=== PATIENT | female | born 1950 | race Caucasian/White ===

== ENCOUNTER 2016-05-15 16:34 | Emergency (ER) | payer OTHER ==
[~2016-05-15] VITALS: Ht 157.5 cm; Wt 88.9 kg
--- NOTE | ~2016-05-15 | EKG ---
[address] [place] [address] ELECTROCARDIOGRAM REPORT Name: JAKUB JACOBOCLOVIS LEIGHE Room #: 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
[~2016-05-15 16:34] MED LIST: AMARYL2 MG PO; ASPIRIN EC325 M1 PO; ATIVAN0.5 MG PO; AUGMENTIN 875875 MG PO; BACTRIM DS TAB1 EACH PO; BENICAR40 MG PO; BYSTOLIC 5 MG5 M1 PO; CELEXA 20 MG TA20 M1 PO; COLACE100 MG PO; COUMADIN 4 MG TA4 M1 PO; COZAAR 25 MG TA25 M2 PO; COZAAR 50 MG TA50 M2 PO; COZAAR100 MG PO; DYAZIDE 37.5-21 EACH PO; EFFEXOR XR150 MG PO; EFFEXOR XR75 MG PO; ESTRACE0.5 MG PO; FISH OIL 1,2001 EAC3 PO; GLUCOPHAGE XR500 MG PO; GLUCOPHAGE500 MG PO; HYDROCODON-ACE1 EAC5 PO; HYDROCODON-ACE1 EAC7 PO; IBUPROFEN 800800 M1 PO; LASIX 40 MG TAB40 M2 PO; LEVSIN0.125 MG PO; LIORESAL 10 MG10 MG PO; LIPITOR20 MG PO; NORCO 5-325 TA1 EACH PO; PEPCID AC20 M1 PO; PEPCID20 MG PO; PERCOCET PO; POTASSIUM20 PO; PREDNISONE 10 M10 MG PO; PREDNISONE 20 M20 M1 PO; PREVACID30 MG PO; PYRIDIUM200 MG PO; TOPROL XL50 MG PO; TRAMADOL 50 MG50 MG PO; VITAMIN D35000 UNI1 PO; VITAMIN E400 UNIT PO; WELLBUTRIN SR150 MG PO; WELLBUTRIN XL150 MG PO; XANAX 0.5 MG0.5 MG PO
[2016-05-15 17:33] LABS: ABSOLUTE NEUTROPHILS 6.1 thou/uL (1.4-8.2); BASOPHILS 0.3 % (0.0-2.0); EOSINOPHILS 1.2 % (0.0-3.0); HEMATOCRIT 41.4 % (37.0-47.0); HEMOGLOBIN 13.9 gm/dL (12.0-15.0); LYMPHOCYTES 21.2 % (24.0-44.0); MCH 27.4 pg (26.0-34.0); MCHC 33.5 % (28.0-37.0); MCV 81.8 fL (80.0-100.0); MONOCYTES 8.9 % (1.0-8.0); PLATELET COUNT 172 thou/uL (150-400); POLYS 68.4 % (36.0-66.0); RBC 5.06 mil/uL (4.20-5.00); RDW 15.1 % (10.5-14.5); WBC 8.9 thou/uL (4.0-11.0)
[2016-05-15 17:36] LABS: MANUAL DIFF NO
[2016-05-15 17:38] LABS: ANION GAP 3 mmol/L (7-16); BUN 22 mg/dL (7-18); CALCIUM 8.7 mg/dL (8.5-10.1); CHLORIDE 102 mmol/L (98-107); CO2 33 mmol/L (21-32); CREATININE 0.8 mg/dL (0.6-1.3); GLUCOSE 84 mg/dL (70-99); POTASSIUM 3.7 mmol/L (3.5-5.1); SODIUM 138 mmol/L (136-145)
[2016-05-15 17:47] LABS: ALBUMIN 3.4 g/dL (3.4-5.0); ALKALINE PHOSPHATASE 120 U/L (46-116); SGOT 20 U/L (15-37); SGPT 31 U/L (30-65); TOTAL BILIRUBIN 0.6 mg/dL (<0.1-1.0); TOTAL PROTEIN 6.5 g/dL (6.4-8.2); TROPONIN-I < 0.04 ng/mL (<0.04-0.07)
[2016-05-15 18:01] LABS: URINE BILIRUBIN NEGATIVE (Negative); URINE BLOOD 2+ (Negative); URINE COLOR YELLOW; URINE GLUCOSE-RANDOM* NEGATIVE (Negative); URINE KETONES NEGATIVE (Negative); URINE LEUKOCYTES-REFLEX NEGATIVE (Negative); URINE PROTEIN (DIPSTICK) NEGATIVE (Negative); URINE UROBILINOGEN 0.2 E.U./dl (0.2-1.0)
[2016-05-15 18:07] LABS: CASTS None Seen /LPF (None Seen); SQUAMOUS 0-3 Few /LPF (0-3); URINE RBC 0-2 Rare /HPF (0-2); URINE WBC-REFLEX None Seen /HPF (0-5)
[2016-05-15 18:08] LABS: CRYSTALS None Seen /LPF (None Seen)
[2016-05-15] MEDS ORDERED: ASPIRIN325 PO (18:10)
[2016-05-15] MEDS ORDERED: HYDROCODONE-AP1 EAC6 PO (18:34)
[2016-05-15] MEDS ORDERED: PHENERGAN 25 MG25 M1 PO (18:34)
[2016-05-15 19:02] VITALS: BP 145/69
== END 2016-05-15 19:03 | disposition home or self-care (01) ==
LOC: ER 16:34
PROVIDERS: Physician Assistant
DX: R10.13 Epigastric pain (principal); F41.9 Anxiety disorder, unspecified; I25.10 Atherosclerotic heart disease of native coronary artery without angina pectoris; I10 Essential (primary) hypertension; E78.5 Hyperlipidemia, unspecified; E11.9 Type 2 diabetes mellitus without complications; Z90.49 Acquired absence of other specified parts of digestive tract; Z90.710 Acquired absence of both cervix and uterus; Z98.890 Other specified postprocedural states; Z88.7 Allergy status to serum and vaccine

== ENCOUNTER 2016-07-23 16:18 | Inpatient (IN) | payer OTHER ==
[~2016-07-23] VITALS: Ht 154.9 cm; Wt 93.1 kg
--- NOTE | ~2016-07-23 | H ---
[facility] [place] [address] HISTORY AND PHYSICAL Name: DISHA JACOBO Room #: 219-P ADM IN M.R.#: [id number] Admission: 07/23/16 Attend Phys: Troy Wray MD Discharge: Date of : 50 Report #: [id number] THIS REPORT FOR: //name// CC: Troy Wray DATE OF SERVICE: 07/23/2016 CHIEF COMPLAINT: Cough and shortness of breath. HISTORY OF PRESENT ILLNESS: The patient is a 65-year-old female who states she has been having more cough and shortness of breath over the past several weeks. She has been treated for pneumonia. Despite the treatment, she is getting worse. She has some yellow sputum production. She is unaware of fever. PAST MEDICAL HISTORY: Significant for: 1. Hypertension. 2. Hyperlipidemia. 3. Reflux. 4. Hyper now hypothyroidism. 5. Anxiety. 6. Coronary artery disease. 7. Diastolic heart failure. 8. Diabetes mellitus type 2. MEDICATIONS: Alprazolam 0.5 p.r.n., metformin XR 500 mg 2 tablets daily, Lipitor 20 mg a day, Singulair 10 mg a day, ProAir p.r.n., venlafaxine 150 mg a day. SOCIAL HISTORY: She is a nonsmoker, no alcohol, no recreational drugs. FAMILY HISTORY: She has a sister with breast cancer, mother and father both . REVIEW OF SYSTEMS: CONSTITUTIONAL: She has had a fever at last visit but none this week. She has had constitutional fatigue, chills. HEENT: No headache or visual changes. CHEST: She has cough with yellow sputum. GASTROINTESTINAL: No nausea, vomiting, diarrhea or constipation. GENITOURINARY: No burning or frequency. EXTREMITIES: No new complaints. SKIN: No new rashes or wounds. NEUROLOGIC: No new numbness or weakness. PHYSICAL EXAMINATION: VITAL SIGNS: Blood pressure 116/72, pulse is 82, respiratory rate is 16. O2 [facility] [address] [place] [address] HISTORY AND PHYSICAL Name: DISHA JACOBO Room #: 219- ADM IN ..#: [id number] Admission: 07/23/16 Attend Phys: Troy Wray MD Discharge: Date of : 50 Report #: [id number] sat is 95% on room air. She is afebrile. GENERAL: She is awake and alert, in no acute distress, but she states she feels very weak and retired. Her mucous membranes are moist. NECK: Supple, without adenopathy, thyromegaly or bruits. CHEST: Shows left basilar crackles. CARDIOVASCULAR: Regular rhythm without murmur. ABDOMEN: Soft, obese. No masses. Bowel sounds are active. EXTREMITIES: Show no edema. Pulses are intact. Chest x-ray shows a left lower lobe infiltrate and the right perihilar infiltrate. ASSESSMENT: Community-acquired pneumonia, failing outpatient therapy. PLAN: We will admit. We are going to start her on IV Rocephin and Zithromax and IV Solu-Medrol and breathing treatments every 4 hours, check a CBC, a CMP and monitor clinically. By: 1612 1722 Troy Wray MD /nt
[~2016-07-23 16:18] MED LIST changes: +ASPIRIN325 PO; +HYDROCODONE-AP1 EAC6 PO; +PHENERGAN 25 MG25 M1 PO
[2016-07-23 16:45] VITALS: BP 150/90
[2016-07-23] MEDS ORDERED: COZAAR 50 MG TA50 M1 PO (17:08)
[2016-07-23 20:04] LABS: HEMATOCRIT 36.7 % (37.0-47.0); HEMOGLOBIN 12.3 gm/dL (12.0-15.0); MCH 27.7 pg (26.0-34.0); MCHC 33.4 g/dL (28.0-37.0); MCV 83.1 fL (80.0-100.0); RBC 4.42 mil/uL (4.20-5.00); RDW 14.5 % (10.5-14.5); WBC 6.4 thou/uL (4.0-11.0)
[2016-07-23 20:09] VITALS: BP 101/66
[2016-07-23 20:16] LABS: ALBUMIN 3.1 g/dL (3.4-5.0); CALCIUM 8.3 mg/dL (8.5-10.1); CREATININE 0.8 mg/dL (0.6-1.3); POTASSIUM 3.8 mmol/L (3.5-5.1); TOTAL BILIRUBIN 0.2 mg/dL (<0.1-1.0); TOTAL PROTEIN 5.9 g/dL (6.4-8.2)
[2016-07-23 23:44] VITALS: BP 119/62
[2016-07-24 04:20] VITALS: BP 119/66
[2016-07-24 07:55] VITALS: BP 136/79
[2016-07-24] MEDS ORDERED: SINGULAIR 10 MG10 M1 PO (08:25)
[2016-07-24 11:20] VITALS: BP 161/50
[2016-07-24 16:20] VITALS: BP 152/78
[2016-07-24 20:25] VITALS: BP 147/83
[2016-07-25 03:40] VITALS: BP 135/78
[2016-07-25 08:00] VITALS: BP 132/65; BP 156/78
[2016-07-25 12:47] VITALS: BP 131/71
[2016-07-25 16:29] VITALS: BP 144/81
[2016-07-25 20:12] VITALS: BP 127/40
[2016-07-26 04:51] VITALS: BP 123/73
[2016-07-26 07:06] VITALS: BP 146/89
[2016-07-26 12:15] VITALS: BP 145/98
[2016-07-26 17:30] VITALS: BP 148/83
[2016-07-26 21:34] VITALS: BP 140/75
[2016-07-27 04:00] VITALS: BP 152/75
[2016-07-27 07:45] VITALS: BP 155/88
[2016-07-27 11:30] VITALS: BP 157/76
[2016-07-27] MEDS ORDERED: CEFDINIR300 MG PO (12:44)
[2016-07-27] MEDS ORDERED: AZITHROMYCIN 2250 MG PO (12:44)
[2016-07-27] MEDS ORDERED: PREDNISONE 10 M10 MG PO (12:45)
[2016-07-27] MEDS ORDERED: COZAAR 25 MG TA25 M1 PO (12:45)
[2016-07-27] MEDS ORDERED: EFFEXOR XR75 MG PO (12:46)
[2016-07-27] MEDS ORDERED: GUAIFENESIN/COD10 M1 PO (12:47)
[2016-07-27 12:56] VITALS: BP 157/76
[2016-07-27 15:12] VITALS: BP 157/76
[2016-07-27 16:45] VITALS: BP 157/76
== END 2016-07-27 16:30 | disposition home or self-care (01) | DRG 190 ==
LOC: 2N 16:18
PROVIDERS: Family Medicine
DX: J44.0 Chronic obstructive pulmonary disease with (acute) lower respiratory infection (principal); J18.9 Pneumonia, unspecified organism; I10 Essential (primary) hypertension; F41.9 Anxiety disorder, unspecified; I25.10 Atherosclerotic heart disease of native coronary artery without angina pectoris; E78.5 Hyperlipidemia, unspecified; J45.909 Unspecified asthma, uncomplicated; K21.9 Gastro-esophageal reflux disease without esophagitis; E03.9 Hypothyroidism, unspecified; E66.9 Obesity, unspecified; E11.9 Type 2 diabetes mellitus without complications; Z80.3 Family history of malignant neoplasm of breast; Z23 Encounter for immunization; Z68.38 Body mass index [BMI] 38.0-38.9, adult; Z88.7 Allergy status to serum and vaccine
CPT/HCPCS: 10797

== ENCOUNTER 2017-02-15 21:15 | Emergency (ER) | payer OTHER ==
[~2017-02-15] VITALS: Ht 157.5 cm; Wt 88.9 kg
[~2017-02-15 21:15] MED LIST changes: +AZITHROMYCIN 2250 MG PO; +CEFDINIR300 MG PO; +COZAAR 25 MG TA25 M1 PO; +COZAAR 50 MG TA50 M1 PO; +GUAIFENESIN/COD10 M1 PO; +SINGULAIR 10 MG10 M1 PO
[2017-02-15] MEDS ORDERED: XANAX 0.25 MG0.25 MG PO (21:56)
[2017-02-15 21:58] LABS: HEMATOCRIT 40.4 % (37.0-47.0); HEMOGLOBIN 13.4 gm/dL (12.0-15.0); MCH 27.9 pg (26.0-34.0); MCHC 33.3 g/dL (28.0-37.0); MCV 83.8 fL (80.0-100.0); PLATELET COUNT 148 thou/uL (150-400); RBC 4.82 mil/uL (4.20-5.00); RDW 14.1 % (10.5-14.5); WBC 7.1 thou/uL (4.0-11.0)
[2017-02-15 22:00] LABS: MANUAL DIFF YES
[2017-02-15 22:05] LABS: CALCIUM 9.4 mg/dL (8.5-10.1); CREATININE 0.9 mg/dL (0.6-1.0); POTASSIUM 3.8 mmol/L (3.5-5.1)
[2017-02-15 22:25] LABS: ABSOLUTE NEUTROPHILS 3.9 thou/uL (1.4-8.2); TOTAL CELL COUNT 100
[2017-02-15] MEDS ORDERED: PREDNISONE 20 M20 MG PO (23:58)
[2017-02-16 00:12] VITALS: BP 134/54
== END 2017-02-16 00:13 | disposition home or self-care (01) ==
LOC: ER 21:15
PROVIDERS: Emergency Medicine
DX: J06.9 Acute upper respiratory infection, unspecified (principal); I10 Essential (primary) hypertension; I25.10 Atherosclerotic heart disease of native coronary artery without angina pectoris; E78.00 Pure hypercholesterolemia, unspecified; K21.9 Gastro-esophageal reflux disease without esophagitis; F41.9 Anxiety disorder, unspecified; Z90.710 Acquired absence of both cervix and uterus; Z98.890 Other specified postprocedural states; Z95.5 Presence of coronary angioplasty implant and graft; Z88.7 Allergy status to serum and vaccine; Z79.82 Long term (current) use of aspirin

== ENCOUNTER → 2017-08-04 | Outpatient (CLI) | payer OTHER ==
[~2017-08-04] MED LIST changes: +PREDNISONE 20 M20 MG PO; +XANAX 0.25 MG0.25 MG PO
[2017-08-04 10:13] LABS: CREATININE 0.8 mg/dL (0.6-1.0)
== END ==
LOC: CAT 05:41
PROVIDERS: Family Medicine
DX: J98.11 Atelectasis (principal)

== ENCOUNTER 2018-06-12 22:59 | Emergency (ER) | payer OTHER ==
[~2018-06-12] VITALS: Ht 154.9 cm; Wt 90.7 kg
[2018-06-12] MEDS ORDERED: DOXYCYCLINE 10100 MG PO (23:28)
[2018-06-12] MEDS ORDERED: BENICAR20 MG PO (23:32)
[2018-06-12 23:40] LABS: URINE BILIRUBIN NEGATIVE (Negative); URINE BLOOD 2+ (Negative); URINE CLARITY CLEAR; URINE COLOR YELLOW; URINE GLUCOSE-RANDOM* NEGATIVE (Negative); URINE KETONES NEGATIVE (Negative); URINE LEUKOCYTES-REFLEX NEGATIVE (Negative); URINE NITRITE-REFLEX NEGATIVE (Negative); URINE PROTEIN (DIPSTICK) NEGATIVE (Negative); URINE SPECIFIC GRAVITY <= 1.005 (1.005-1.035); URINE UROBILINOGEN 0.2 E.U./dl (0.2-1.0)
[2018-06-12 23:45] LABS: ABSOLUTE NEUTROPHILS 3.3 thou/uL (1.4-8.2); BASOPHILS 0.4 % (0.0-2.0); EOSINOPHILS 3.3 % (0.0-3.0); HEMATOCRIT 38.6 % (37.0-47.0); HEMOGLOBIN 12.9 gm/dL (12.0-15.0); LYMPHOCYTES 31.3 % (24.0-44.0); MCH 27.8 pg (26.0-34.0); MCHC 33.5 g/dL (28.0-37.0); MCV 82.9 fL (80.0-100.0); MONOCYTES 11.4 % (1.0-8.0); PLATELET COUNT 157 thou/uL (150-400); POLYS 53.6 % (36.0-66.0); RBC 4.65 mil/uL (4.20-5.00); RDW 14.4 % (10.5-14.5); WBC 6.1 thou/uL (4.0-11.0)
[2018-06-12 23:55] LABS: ANION GAP 7 mmol/L (7-16); BUN 16 mg/dL (7-18); CALCIUM 8.8 mg/dL (8.5-10.1); CHLORIDE 106 mmol/L (98-107); CO2 26 mmol/L (21-32); CREATININE 0.6 mg/dL (0.6-1.0); GLUCOSE 99 mg/dL (74-106); POTASSIUM 3.7 mmol/L (3.5-5.1); SODIUM 139 mmol/L (136-145)
[2018-06-12 23:59] LABS: BACTERIA-REFLEX None Seen /HPF (None Seen); CASTS None Seen /LPF (None Seen); CRYSTALS None Seen /LPF (None Seen); MUCUS 0-3 Light strn/LPF (None Seen); SQUAMOUS None Seen /LPF (0-3); URINE RBC 0-2 Rare /HPF (0-2); URINE WBC-REFLEX None Seen /HPF (0-5)
[2018-06-13 00:05] LABS: TROPONIN-I <0.06 ng/mL (<0.06)
[2018-06-13 03:06] VITALS: BP 173/64
--- NOTE | 2018-06-13 08:25 | EKG ---
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 : 1950 Requested By: Rohan Rodriguez Order Number: [id number] MD: Donato Garland Measurements Intervals [place] Rate: 58 P: 47 [place]: 173 QRS: 45 QRSD: 107 T: 44 QT: 422 QTc: 415 Interpretive Statements Sinus bradycardia Otherwise no significant abnormality Compared to ECG 05/15/2016 16:41:57 No significant change was found Electronically Signed On 06-13-2018 8:25:28 CYTOPATHOLOGIST by Donato Garland [email or web address] <ELECTRONICALLY SIGNED> By: Donato Garland MD, [facility] 06/13/18 0825 2313 2313 Donato Garland MD, FACC /EPI
== END 2018-06-13 03:07 | disposition home or self-care (01) ==
LOC: ER 22:59
PROVIDERS: Emergency Medicine
DX: R06.00 Dyspnea, unspecified (principal); R06.02 Shortness of breath; I10 Essential (primary) hypertension; E11.9 Type 2 diabetes mellitus without complications; E78.5 Hyperlipidemia, unspecified; K21.9 Gastro-esophageal reflux disease without esophagitis; F41.9 Anxiety disorder, unspecified; Z90.49 Acquired absence of other specified parts of digestive tract; Z95.5 Presence of coronary angioplasty implant and graft

== ENCOUNTER → 2018-07-05 | Outpatient (CLI) | payer OTHER ==
[~2018-07-05] MED LIST changes: +BENICAR20 MG PO; +DOXYCYCLINE 10100 MG PO
== END ==
LOC: CAT 11:22
DX: J32.9 Chronic sinusitis, unspecified (principal)

== ENCOUNTER → 2018-08-23 | Outpatient (CLI) | payer OTHER ==
[2018-08-23 07:58] LABS: CREATININE 0.7 mg/dL (0.6-1.0)
== END ==
LOC: CAT 07:23
PROVIDERS: Family Medicine
DX: R51 Headache (principal); R50.9 Fever, unspecified; R22.1 Localized swelling, mass and lump, neck; M47.812 Spondylosis without myelopathy or radiculopathy, cervical region

== ENCOUNTER → 2018-11-21 | Outpatient (CLI) | payer OTHER | LOC: NUC 07:52 | DX: K21.9 Gastro-esophageal reflux disease without esophagitis (principal); R11.0 Nausea ==

== ENCOUNTER → 2019-01-09 | Outpatient (CLI) | payer OTHER | LOC: MRI 12:14 | DX: S83.231A Complex tear of medial meniscus, current injury, right knee, initial encounter (principal); M25.461 Effusion, right knee; M71.21 Synovial cyst of popliteal space [Baker], right knee; M22.41 Chondromalacia patellae, right knee; X58.XXXA Exposure to other specified factors, initial encounter; Y93.89 Activity, other specified; Y92.89 Other specified places as the place of occurrence of the external cause; Y99.8 Other external cause status ==

== ENCOUNTER 2019-03-03 10:42 | Emergency (ER) | payer OTHER ==
[~2019-03-03] VITALS: Ht 172.7 cm; Wt 89.8 kg
[2019-03-03] MEDS ORDERED: LOVENOX80 MG/0.8 SUBQ (11:05)
[2019-03-03 11:23] LABS: ABSOLUTE NEUTROPHILS 4.6 thou/uL (1.4-8.2); BASOPHILS 0.8 % (0.0-2.0); EOSINOPHILS 2.4 % (0.0-3.0); HEMATOCRIT 41.2 % (37.0-47.0); HEMOGLOBIN 13.4 gm/dL (12.0-15.0); LYMPHOCYTES 39.9 % (24.0-44.0); MCH 27.8 pg (26.0-34.0); MCHC 32.5 g/dL (28.0-37.0); MCV 85.4 fL (80.0-100.0); MONOCYTES 8.5 % (1.0-8.0); PLATELET COUNT 239 thou/uL (150-400); POLYS 48.4 % (36.0-66.0); RBC 4.82 mil/uL (4.20-5.00); RDW 15.4 % (10.5-14.5); WBC 9.4 thou/uL (4.0-11.0)
[2019-03-03 11:26] LABS: CALCIUM 8.8 mg/dL (8.5-10.1); CREATININE 0.7 mg/dL (0.6-1.0); POTASSIUM 3.6 mmol/L (3.5-5.1)
[2019-03-03 13:43] LABS: ALBUMIN 3.6 g/dL (3.4-5.0); DIRECT BILIRUBIN < 0.1 mg/dL (<0.1-0.3); SGOT 25 U/L (15-37); SGPT 20 U/L (30-65); TOTAL BILIRUBIN 0.2 mg/dL (<0.1-1.0); TOTAL PROTEIN 7.1 g/dL (6.4-8.2)
[2019-03-03] MEDS ORDERED: NORCO 5-325 TA1 EAC1 PO (14:31)
[2019-03-03] MEDS ORDERED: ZOFRAN ODT4 MG PO (14:31)
[2019-03-03 14:59] VITALS: BP 151/57
--- NOTE | 2019-03-04 11:26 | EKG ---
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 Agent: [facility] : 1950 Requested By: Claire Mayo Order Number: [id number] MD: Angel Nielsen Measurements Intervals [place] Rate: 58 P: 12 CT: 155 QRS: 38 QRSD: 105 T: 35 QT: 433 QTc: 426 Interpretive Statements Sinus rhythm RSR' in V1 or V2, probably normal variant Compared to ECG 06/12/2018 23:13:33 RSR' in V1 or V2 now present Sinus bradycardia no longer present Electronically Signed On 03-04-2019 11:26:05 CONSTRUCTION ACCOUNTANT by Angel Nielsen [email or web address] <ELECTRONICALLY SIGNED> By: Angel Nielsen MD 03/04/19 1126 1444 1444 Angel Nielsen MD /EPI
== END 2019-03-03 15:04 | disposition home or self-care (01) ==
LOC: ER 10:42
PROVIDERS: Nurse Practitioner Family
DX: K85.90 Acute pancreatitis without necrosis or infection, unspecified (principal); Z48.01 Encounter for change or removal of surgical wound dressing; R42 Dizziness and giddiness; I10 Essential (primary) hypertension; I25.10 Atherosclerotic heart disease of native coronary artery without angina pectoris; E11.9 Type 2 diabetes mellitus without complications; F41.9 Anxiety disorder, unspecified; K21.9 Gastro-esophageal reflux disease without esophagitis; Z90.49 Acquired absence of other specified parts of digestive tract; Z90.89 Acquired absence of other organs; Z90.710 Acquired absence of both cervix and uterus

== ENCOUNTER → 2019-03-23 | Outpatient (CLI) | payer OTHER ==
[~2019-03-23] MED LIST changes: +LOVENOX80 MG/0.8 SUBQ; +NORCO 5-325 TA1 EAC1 PO; +ZOFRAN ODT4 MG PO
== END ==
LOC: CAT 09:33
DX: R10.9 Unspecified abdominal pain (principal); Z90.49 Acquired absence of other specified parts of digestive tract

== ENCOUNTER → 2019-07-06 | Outpatient (CLI) | payer OTHER | LOC: CAT 10:28 | DX: Z13.6 Encounter for screening for cardiovascular disorders (principal); E78.00 Pure hypercholesterolemia, unspecified; I25.10 Atherosclerotic heart disease of native coronary artery without angina pectoris ==

== ENCOUNTER → 2019-09-19 | Outpatient (CLI) | payer OTHER | LOC: SJCVC 13:21 | DX: I25.10 Atherosclerotic heart disease of native coronary artery without angina pectoris (principal); I10 Essential (primary) hypertension; E78.5 Hyperlipidemia, unspecified; E13.9 Other specified diabetes mellitus without complications; K21.9 Gastro-esophageal reflux disease without esophagitis; Z79.82 Long term (current) use of aspirin; Z86.711 Personal history of pulmonary embolism; Z79.899 Other long term (current) drug therapy ==

== ENCOUNTER → 2019-10-09 | Outpatient (CLI) | payer OTHER ==
[~2019-10-09] MED LIST changes: +METFORMIN HCL500 M3 PO
== END ==
LOC: LAB 11:35
PROVIDERS: ATTEND Student in an Organized Health Care Education/Training Program
DX: Z01.818 Encounter for other preprocedural examination (principal); Z11.59 Encounter for screening for other viral diseases

== ENCOUNTER 2019-10-11 06:15 | Day surgery (SDC) | payer OTHER ==
[~2019-10-11] VITALS: Ht 154.9 cm; Wt 91.6 kg
[2019-10-11 07:24] VITALS: BP 132/70
--- NOTE | 2019-10-22 06:04 | O ---
[facility] [place] [address] OPERATIVE REPORT Name: DISHA JACOBO Room #: DEP [facility] M..#: [id number] Admission: 10/11/19 Attend Phys: Cali Orozco MD Discharge: 10/11/19 Date of : 50 Report #: [id number] THIS REPORT FOR: cc: Troy Wray MD, Neal A. MD White,Cali Johns MD ~ CC: Jennifer Orozco DATE OF SERVICE: 10/11/2019 SURGEON: Cali Orozco MD RIP MACHINE OPERATOR: None. PREOPERATIVE DIAGNOSIS: Bilateral upper lid dermatochalasia with superior visual field defect. POSTOPERATIVE DIAGNOSIS: Bilateral upper lid dermatochalasia with superior visual field defect. OPERATION PERFORMED: Bilateral upper lid functional blepharoplasty. ANESTHESIA: Local with IV sedation. COMPLICATIONS: None. INDICATIONS FOR SURGERY: This patient has acquired upper lid dermatochalasia with superior visual field loss both eyes because of excessive upper lid tissues to include skin and fat. Visual field testing demonstrates dense superior visual defects. Retesting with the upper lid elevated shows an improvement in visual field loss of over 30% and in excess of 12 degrees. The current procedures are undertaken in order to improve the patient's visual function. Informed consent was obtained to include but not limited to the loss of vision, bleeding, infection, scarring, failure to improve the problem and need for further surgery. DESCRIPTION OF OPERATION: The patient was taken to the operating room, where 2% Xylocaine with epinephrine mixed with equal parts of 0.75% Marcaine with Wydase was administered transcutaneously to each upper lid. The patient was then prepped and draped in the usual sterile fashion and a skin-marking pen was then utilized to outline an upper lid crease that was symmetrical on each side. Graefe forceps were then used to quantitate the redundant upper lid skin and it [facility] [address] [place] [address] OPERATIVE REPORT Name: DISHA JACOBO Room #: DEP [facility].#: [id number] Admission: 10/11/19 Attend Phys: Cali Orozco MD Discharge: 10/11/19 Date of : 50 Report #: [id number] was similarly outlined. The incisions were then made with Medardo scissors and a skin-muscle flap removed from each side with high-temp cautery. Hemostasis was achieved with the monopolar cautery as it was throughout the case. The orbital septum was then identified and the central and medial fat pads were inspected. The redundant soft tissue was then sculpted with the monopolar cautery. The upper lid crease was then reformed with tightening of the pretarsal orbicularis muscle. The upper lid crease was then further reformed with multiple interrupted 6-0 chromic sutures. The skin was then closed with a running 6-0 plain gut suture. The wound was then cleaned and dressed with ophthalmic antibiotic ointment and a nonstick dressing. The patient was transported to the recovery area, where cold compresses were applied, having tolerated the procedure well with no anesthetic or operative complications being noted. <ELECTRONICALLY SIGNED> By: Cali Orozco MD 10/22/19 0604 0746 0755 Cali Orozco MD /nt
== END 2019-10-11 08:42 | disposition home or self-care (01) ==
LOC: OR 06:15 → TBA 06:15 → OR 08:42
PROVIDERS: ATTEND Ophthalmology
DX: H02.834 Dermatochalasis of left upper eyelid (principal); H02.831 Dermatochalasis of right upper eyelid; H53.462 Homonymous bilateral field defects, left side; H53.461 Homonymous bilateral field defects, right side; I10 Essential (primary) hypertension; E78.00 Pure hypercholesterolemia, unspecified; E11.9 Type 2 diabetes mellitus without complications; K21.9 Gastro-esophageal reflux disease without esophagitis; F41.9 Anxiety disorder, unspecified; Z98.890 Other specified postprocedural states; Z79.899 Other long term (current) drug therapy; Z79.82 Long term (current) use of aspirin; Z90.710 Acquired absence of both cervix and uterus; Z90.49 Acquired absence of other specified parts of digestive tract
CPT/HCPCS: 50010; 50101; 50386; 50398; 51636; 56531; 62110; 62850; 70005

== ENCOUNTER 2019-12-28 11:22 | Inpatient (IN) | payer OTHER ==
[2019-12-28] VITALS (13 sets, daily range): BP systolic 94–164; BP diastolic 45–72
[~2019-12-28] VITALS: Ht 157.5 cm; Wt 86.6 kg
--- NOTE | 2019-12-28 16:08 | 2DMMODE ---
[facility] [place] [address] 2 D/M-MODE ECHOCARDIOGRAM Name: DISHA JACOBO Room #: 219-P ADM IN M.R.#: [id number] Admission: 12/28/19 Attend Phys: Troy Wray MD Discharge: Date of : 50 Report #: [id number] THIS REPORT FOR: cc: Troy Wray MD, Neal A. MD Lundgren, Craig H. MD [facility] ~ APPROVED REPORT Study performed: 12/28/2019 14:27:03 EXAM: Comprehensive 2D, Doppler, and color-flow Echocardiogram Patient Location: Bedside Room #: 219 Status: routine BSA: 1.91 HR: 59 bpm BP: 164/72 mmHg Rhythm: Bradycardia Other Information Study Quality: Good Indications Diabetes CAD Chest Pain Hypertension/HDD 2D Dimensions RVDd: 30.32 mm IVSd: 12.53 (7-11mm) LVOT Diam: 21.01 (18-24mm) LVDd: 49.54 mm PWd: 13.08 (7-11mm) Ascending Ao: 29.60 (22-36mm) LVDs: 30.15 (25-40mm) Aortic Root: 30.44 mm IVC: 17.00 mm Volumes Left Atrial Volume (Systole) Single Plane 4CH: 35.77 mL Single Plane 2CH: 24.79 mL LA ESV Index: 19.00 mL/m2 Aortic Valve AoV Peak Todd.: 1.05 m/s AO Peak Gr.: 4.37 mmHg LVOT Max P.89 mmHg [facility] [address] [place] [address] 2 D/M-MODE ECHOCARDIOGRAM Name: DISHA JACOBO Room #: 219-P [facility] IN .R.#: [id number] Admission: 12/28/19 Attend Phys: Troy Wray, Discharge: Date of : 50 Report #: [id number] LVOT Max V: 0.85 m/s SARA Vmax: 2.82 cm2 Mitral Valve E/A Ratio: 0.8 MV Decel. Time: 267.99 ms MV E Max Todd.: 0.59 m/s MV A Todd.: 0.72 m/s MV PHT: 77.72 ms IVRT: 119.95 ms Pulmonary Valve PV Peak Todd.: 0.95 m/s PV Peak Gr.: 3.63 mmHg Pulmonary Vein P Vein S: 0.45 m/s P Vein A: 0.34 m/s P Vein D: 0.33 m/s P Vein A Dur.: 92.3 msec P Vein S/D Ratio: 1.36 Tricuspid Valve TR Peak Todd.: 2.75 m/s TR Peak Gr.: 30.14 mmHg PA Pressure: 35.00 mmHg Left Ventricle The left ventricle is normal size. There is normal LV segmental wall motion. There is normal left ventricular wall thickness. Left ventricular systolic function is normal. The left ventricular ejection fraction is within the normal range. LVEF is 55-60%. Mild diastolic dysfunction is present (impaired relaxation pattern). Right Ventricle The right ventricle is normal size. The right ventricular systolic function is normal. Atria The left atrium size is normal. The right atrium size is normal. Aortic Valve The aortic valve is normal in structure. Trace aortic regurgitation. There is no aortic valvular stenosis. Mitral Valve The mitral valve is normal in structure. Trace to mild mitral [facility] [address] [place] [address] 2 D/M-MODE ECHOCARDIOGRAM Name: DISHA JACOBO Room #: 219-P ADM IN M.R.#: [id number] Admission: 12/28/19 Attend Phys: Troy Wray, Discharge: Date of : 50 Report #: [id number] regurgitation. No evidence of mitral valve stenosis. Tricuspid Valve The tricuspid valve is normal in structure. There is trace tricuspid regurgitation. Estimated PAP 35 mmHg. There is mild pulmonary hypertension. Pulmonic Valve The pulmonary valve is normal in structure. There is no pulmonic valvular regurgitation. Great Vessels The aortic root is normal in size. The ascending aorta is normal in size. IVC is normal in size and collapses >50% with inspiration. Pericardium There is no pericardial effusion. <Conclusion> Left ventricular systolic function is normal. There is normal LV segmental wall motion. LVEF is 55-60%. Mild diastolic dysfunction The aortic valve is normal in structure. Trace aortic regurgitation, no stenosis. The mitral valve is normal in structure. Trace to mild mitral regurgitation. There is trace tricuspid regurgitation. Estimated pulmonary artery pressure of 35 mmHg. There is no pericardial effusion. <ELECTRONICALLY SIGNED> By: Donato Garland MD, FACC 12/28/19 1607 160 160 Donato Garland MD, FACC /INF
--- NOTE | 2019-12-28 16:22 | CATHLAB ---
[facility] [place] [address] INVASIVE PROCEDURE REPORT Name: DISHA JACOBO Room #: 219-P ADM IN M.R.#: [id number] Admission: 12/28/19 Attend Phys: Troy Wray MD Discharge: Date of : 50 Report #: [id number] THIS REPORT FOR: cc: Troy Wray MD, Neal A. MD Lundgren, Craig H. MD [facility] ~ APPROVED REPORT Study performed: 12/28/2019 14:25:22 Patient Details Patient Status: In-Patient Room #: The patient is a 69 year-old female Event Personnel Donato Garland Processing Rep, Abhinav Middleton RN RN, Jacki Escalona RT(R)(Kiko Francis Sherra RTR Monitor Procedures Performed Art Access - R femoral artery* Left Heart Cath w/or w/o Coronaries [id number] [facility] [address] Initial Mod Sed Same Phys/QHP Gr5y 350449 00772 Mod Sed Same Phys/QHP Ea 042649 Hemostasis w/ Mynx Indication Chest pain Procedure Narrative The patient was brought urgently to the Cardiac Catheterization Laboratory and was prepped and draped in a sterile manner. The Right Groin^ was infiltrated with 1% Lidocaine subcutaneous anesthesia. A PINNACLE 6FR Sheath #[id number] sheath was inserted into the RFA^. Coronary angiography was performed using coronary diagnostic catheters. The right coronary system was accessed and visualized with a JR4 catheter. The left coronary system was accessed and visualized with a JL4 catheter. The left ventricle was accessed and visualized with a PIGTAIL catheter. Left ventriculogram was performed in 30 degree projection. Closure device was deployed with a 6 Fr MYNXGRIP 6/7F #[id number]. The patient tolerated the procedure well and there were no complications associated with the procedure. There was no hematoma. Intraoperative Conscious Sedation Sedation start time: 153 Case end Time: 1559 [facility] [place] [address] INVASIVE PROCEDURE REPORT Name: DISHA JACOBO Room #: 219-P [facility] IN .R.#: [id number] Admission: 12/28/19 Attend Phys: Troy Wray, Discharge: Date of : 50 Report #: [id number] Fentanyl 100 mcg Versed 2 mg Fluoro Time: 1.31 minutes Dose: DAP 3662.70 cGycm2 470 mGy Contrast Type and Amount: Omnipaque 135 ml Coronary Angiography The patient's coronary anatomy is right dominant. Diagnostic Cath Left Main Normal left main LAD 40-50% proximal LAD stenosis at the origin of a single large diagonal branch Diagonal 1 Large, angiographically normal, single diagonal branch Circumflex Large but nondominant circumflex comprised of 3 marginal branches OM1 Small, angiographically normal OM2 Small, angiographically normal OM3 Moderately large, distally arising, angiographically normal Right Coronary Large, dominant right coronary, angiographically normal R PDA Normal posterior descending RPLV Moderate size posterior lateral, angiographically normal Left Ventriculography The left ventricle is normal in size with normal contractility. The left ventricular ejection fraction is estimated to be 60-65%. There is no mitral insufficiency. Hemodynamics The aortic pressure is 186/70 mmHg with a mean of 114 mmHg. The left ventricular pressure is 196/9 mmHg with a mean of mmHg. The left ventricular end diastolic pressure is 30 mmHg. Conclusion 1. Normal global and regional left ventricular systolic function. Ejection fraction 65% 2. Normal left main 3. 40-50% proximal LAD stenosis. Similar to 2007 [facility] [address] [place] [address] INVASIVE PROCEDURE REPORT Name: DISHA JACOBO Room #: 219-P [facility] IN M.R.#: [id number] Admission: 12/28/19 Attend Phys: Troy Wray, Discharge: Date of : 50 Report #: [id number] 4. Normal circumflex and right coronary arteries, right coronary dominant <ELECTRONICALLY SIGNED> By: Donato Garland MD, [facility] 12/28/19 1622 162 1622 Donato Garland MD, FACC /INF
--- NOTE | 2019-12-28 16:49 | EKG ---
[facility] [place] [address] ELECTROCARDIOGRAM REPORT Name: DISHA JACOBO Room #: 219-P ADM IN M.R.#: [id number] Admission: 12/28/19 Attend Phys: Troy Wray MD Discharge: Date of : 50 Report #: [id number] THIS REPORT FOR: cc: Troy Wray MD, Neal A. 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: Regis FERNANDEZ : 1950 Requested By: Donato Garland Order Number: [id number] MD: Donato Garland Measurements Intervals [place] Rate: 61 P: 3 SC: 156 QRS: 53 QRSD: 104 T: 88 QT: 409 QTc: 412 Interpretive Statements Sinus rhythm Nonspecific T abnormalities, lateral leads Compared to ECG 03/03/2019 14:44:42 No significant change was found Electronically Signed On 12-28-2019 16:48:50 CDT by Donato Garland [email or web address] <ELECTRONICALLY SIGNED> By: Donato Garland MD, [facility] 12/28/19 1648 1344 1344 Donato Garland MD, [facility] /EPI
[2019-12-28 17:43] LABS: CHOLESTEROL 145 mg/dL (<200); HDL CHOLESTEROL 54 mg/dL (>40); LDL CHOLESTEROL 66 mg/dL (<100); TC:HDL 2.7 Ratio (Not establshd); TRIGLYCERIDE 128 mg/dL (<150); VLDL 26 mg/dL (<40)
[2019-12-28 17:53] LABS: ALBUMIN 3.4 g/dL (3.4-5.0); AMYLASE 57 U/L (25-115); ANION GAP 5 mmol/L (7-16); BUN 13 mg/dL (7-18); CALCIUM 8.3 mg/dL (8.5-10.1); CHLORIDE 105 mmol/L (98-107); CO2 29 mmol/L (21-32); CREATININE 0.8 mg/dL (0.6-1.0); GLUCOSE 105 mg/dL (74-106); LIPASE 87 U/L (73-393); POTASSIUM 3.9 mmol/L (3.5-5.1); SGOT 36 U/L (15-37); SGPT 41 U/L (30-65); SODIUM 139 mmol/L (136-145); TOTAL BILIRUBIN 0.5 mg/dL (0.2-1.0); TOTAL PROTEIN 6.5 g/dL (6.4-8.2); TROPONIN-I <0.06 ng/mL (<0.06)
--- NOTE | 2019-12-28 19:49 | NUR ---
PT CARE ASSUMED AT 1240. ASSESSMENTS CHARTED. MEDICATION CHARTED. PT IS A DIRECT ADMIT FROM [facility] ED. CARDIAC CATH AT 1500, NEGATIVE, RT GROIN; MYNX CLOSURE; C/D/I NO HEMATOMA. PT'S EPIGASTRIC PAIN PERSISTS DESPITE MORPHINE. PT TO CT WITH CONTRAST; HOLD METFORMIN FOR 48 HOURS; NIGHT RN NOTIFIED.
--- NOTE | 2019-12-28 23:23 | NUR ---
[address] PER WHEELCHAIR PAST OFF BEDREST. UP WITH STEADY GAIT. REMAINS WITH COMPLAINTS OF SEVERE PAIN. SPOKE WITH DR. UAMNA AND ORDERS RECIEVED. 2000 NO PAIN RELIEF FROM MOROPHINE. NTG 1 SL GIVEN FOR COMPLAINTS OF EPIGASTRIC PAIN. PAIN 01/09 2007 SECOND SL NTG GIVEN PER ORDERS. PAIN 09/08 2014 PAIN NOW 07/09. [address] UMANA OF PAIN DECREASE PAST NTG AND OF CT RESULTS. ORDERS RECIEVED. 2114 GI COCKTAIL GIVEN, NOW PAIN SCALE 06/11. 2199 SLEEPING NOW.
[2019-12-29 03:30] VITALS: BP 121/63
[2019-12-29 04:06] LABS: GLYCOHEMOGLOBIN (HGB A1C) 5.6 % (4.8-5.6)
--- NOTE | 2019-12-29 07:50 | NUR ---
0212 AWOKEN WITH EPIGASTRIC PAIN 12/09, BP 153/80, NTG SL GIVEN, 217 PAIN 10/09, BP 107/70. NTG SL GIVEN 224 PAIN 06/11, BP 98/53, PATIENT RESTING. [address] UMANA AND INFORMED OF PAIN AT 211 AND AGAIN NOW WITH PAIN 02/08. GI COCKTAIL AGAIN GIVEN. 06 PAIN AGIAN AT 02/08, BP 122/62. NTG GIVEN. 06 BP 97/56, PAIN 12/09. [address] UMANA. ORDERS RECIVED. GI CONSULT CALLED AND DR WILL SEE THIS AM. NPO. 0630 PROCARDIA 30 MG PO GIVEN, PAIN 6/. REMAINS EPIGASTIC AND CRAMPING. NOT PROGRESSING TOWARDS DISCHARGE GOALS. AWAITING DR TO SEE.
[2019-12-29 08:37] VITALS: BP 153/79
[2019-12-29 12:00] VITALS: BP 100/53
--- NOTE | 2019-12-29 18:01 | NUR ---
ASSESSMENT CHARTED. PT ALERT AND ORIENTED. VSS. PRN PAIN MED GIVEN FOR FLORES WITH PARTIAL RELIEF. SEEN BY GI DOCTOR. NEW ORDERS NOTED. NO CONCERNS AT THIS TIME. WILL CONTINUE TO MONITOR.
[2019-12-29 20:40] VITALS: BP 114/46
--- NOTE | 2019-12-30 03:17 | NUR ---
SLEPT MOST OF SHIFT. UP TO BATHROOM AD RICA WITH STEADY GAIT. DENIES EPIGASTRIC PAIN THIS SHIFT STATING THE MEDICINE IS HELPING. WORKING ON GOALS AND PLAN OF CARE FOR NOC. PROGRESSING SLOWLY TOWARDS DISCHARGE GOALS. TYLENOL GIVEN FOR HEADACHE X1. CONTINUE TO ASSES.
[2019-12-30 03:50] VITALS: BP 117/53
[2019-12-30 08:50] VITALS: BP 117/72
[2019-12-30] MEDS ORDERED: HYOSCYAMINE0.125 M1 PO (09:03)
[2019-12-30] MEDS ORDERED: CARAFATE 1 GM TA1 G1 PO (09:06)
[2019-12-30] MEDS ORDERED: PANTOPRAZOLE SO40 M1 PO (09:14)
--- NOTE | 2019-12-30 10:29 | NUR ---
ASSESSMENT CHARTED. PT ALERT AND ORIENTED. VSS. DENIED HAVING PAIN OR DISCOMFORT. SEEN BY DR. UMANA. ORDERS GIVEN TO DISCHARGE PT TO HOME. DISCHARGE INSTRUCTIONS GIVEN TO PT. PT VERBERLISED UNDERSTANDING.
[2019-12-30 10:30] VITALS: BP 117/53
--- NOTE | 2019-12-30 10:43 | HC ---
[facility] [place] [address] CONSULTATION Name: DISHA JACOBO Room #: 219-P ADM IN M.R.#: [id number] Admission: 12/28/19 Attend Phys: Troy Wray MD Discharge: Date of : 50 Report #: [id number] THIS REPORT FOR: cc: Troy Wray MD, Neal A. MD McElhinney, Christian C. MD ~ CC: Donato Garland MD [facility] Troy Wray MD DATE OF SERVICE: 12/29/2019 HISTORY OF PRESENT ILLNESS: The patient is a 69-year-old female who was admitted with recurrent midepigastric abdominal pain as well as low chest pain. She said at times the pain is fairly severe. She does have a history of coronary artery disease, underwent a cardiac catheterization in 2006, mild stenosis noted at that time. She has had a previous radiofrequency ablation for PSVT. Cardiac workup here has been negative. She even underwent a repeat cardiac catheterization showing no new changes. She has been getting nitroglycerin, which is helpful with the pain. She then underwent a CT scan of the abdomen and pelvis last evening, which showed no acute CT findings, duodenal and distal colonic diverticulosis was noted, prior cholecystectomy, appendectomy and hysterectomy changes also noted. The patient's labs have been essentially normal. She underwent an EGD and colonoscopy by my partner, Dr. Ashley on 09/21/2019. Upper endoscopy was performed for abdominal pain at that time as well as dysphagia. She was noted to have a mild gastritis with a small antral erosion. Biopsies at that time were negative for H. pylori as well as celiac sprue and the plan was to increase her omeprazole, which she has been taking since that time. A colonoscopy was also performed the same day showing diverticulosis. Random biopsies were negative for microscopic colitis. However, she does have a history of mild lymphocytic colitis on previous colonoscopy in 2017. Currently, she denies any diarrhea. She denies any blood in her stools. No nausea or vomiting. She does have midepigastric abdominal pain, it is somewhat better today. She denies any shortness of breath or cough currently. No fevers or chills. She has received nitroglycerin several times again, which has helped with the pain when it is severe. It has caused somewhat of a headache and it did drop her blood pressure slightly. She has been placed on Carafate since her admission. She is on Protonix at this time. Her weight has been stable recently. PAST MEDICAL AND SURGICAL HISTORY: Coronary artery disease, hypertension, hyperlipidemia, possible diabetes, previous history of PSVT, previous history of lymphocytic colitis, most recent biopsies again were negative, small gastric erosions noted on recent upper endoscopy as described above, previous history of pancreatitis, arthritis, previous hysterectomy, appendectomy, cholecystectomy, and bladder lift surgery in 2004. [address] [address] CONSULTATION Name: DISHA JACOBO Room #: 219-P [facility] IN M.R.#: [id number] Admission: 12/28/19 Attend Phys: Troy Wray MD Discharge: Date of : 50 Report #: [id number] ALLERGIES: No known drug allergies. REVIEW OF SYSTEMS: As per HPI. SOCIAL HISTORY: She denies any tobacco or alcohol use at this time. FAMILY HISTORY: Negative for colon cancer. CURRENT MEDICATIONS: Tylenol p.r.n., Effexor, olmesartan, aspirin 325 mg, Protonix 40 mg daily, oxycodone p.r.n., atorvastatin, received nitroglycerin several times, Carafate, diazepam, alprazolam. PHYSICAL EXAMINATION: VITAL SIGNS: Temperature is 37.4, blood pressure 100/53, respiratory rate is 18, pulse 69. GENERAL: She is alert and oriented x 3, in no acute distress. HEENT: Sclerae nonicteric. Oropharynx clear. NECK: Supple without lymphadenopathy. CARDIOVASCULAR: Regular rate and rhythm. CHEST: Clear to auscultation bilaterally. ABDOMEN: Soft. She is mildly tender to palpation in the midepigastrium, nondistended, normoactive bowel sounds. EXTREMITIES: No cyanosis, clubbing or edema. LABORATORY DATA: Sodium 139, potassium 3.9, chloride 105, bicarbonate 29, BUN 13, creatinine 0.8, glucose 105. Hemoglobin A1c is 5.6. Total bilirubin 0.5, AST 36, ALT 41, alkaline phosphatase 140. Troponin less than 0.06. Albumin 3.4. Triglycerides 128. Cholesterol 145, amylase 57, lipase is 87. TSH is 1.027. WBC is 9.4, hemoglobin 13.4, platelet count is 239. Coronavirus was negative on 10/09/2019. ASSESSMENT AND PLAN: Midepigastric abdominal pain, etiology is unclear. Cardiac catheterization was performed yesterday, with no new changes. A CT scan of the abdomen and pelvis was essentially negative. Her amylase and lipase are normal. Liver function tests are basically normal other than a mild elevation in alkaline phosphatase. The patient is on aspirin, which increases the risk for peptic ulcer disease; however, she just had an upper endoscopy performed on 09/21/2019, noted to have small erosion and she has been on PPI therapy since that time. I doubt repeat upper endoscopy would be beneficial at this time. Agree with continuing PPI therapy as well as addition of Carafate, which has been started. I discussed the case with Dr. Wray as well. We discussed the possibility of esophageal spasm and a calcium channel penny was to be started. We will also start Levsin on a scheduled basis as this may be helpful, we will start a regular diet today as tolerated and continue to monitor the patient closely. [facility] [address] [place] [address] CONSULTATION Name: DISHA JACOBO Room #: 219-P [facility] IN ..#: [id number] Admission: 12/28/19 Attend Phys: Troy Wray MD Discharge: Date of : 50 Report #: [id number] Thank you for allowing me to participate in her care. <ELECTRONICALLY SIGNED> By: Brandon Millan MD 12/30/19 [id number] Brandon Millan MD /nt
== END 2019-12-30 10:44 | disposition home or self-care (01) | DRG 286 ==
LOC: 2N 11:22
PROVIDERS: Internal Medicine; ADMIT Family Medicine; ATTEND Family Medicine
PROC: B2111ZZ Fluoroscopy of Multiple Coronary Arteries using Low Osmolar Contrast (ICD-10-PCS; principal; 2019-12-28)
PROC: 4A023N7 Measurement of Cardiac Sampling and Pressure, Left Heart, Percutaneous Approach (ICD-10-PCS; principal; 2019-12-28)
PROC: B2151ZZ Fluoroscopy of Left Heart using Low Osmolar Contrast (ICD-10-PCS; principal; 2019-12-28)
DX: I25.110 Atherosclerotic heart disease of native coronary artery with unstable angina pectoris (principal); I50.31 Acute diastolic (congestive) heart failure; K22.4 Dyskinesia of esophagus; E78.5 Hyperlipidemia, unspecified; I10 Essential (primary) hypertension; E11.9 Type 2 diabetes mellitus without complications; K57.30 Diverticulosis of large intestine without perforation or abscess without bleeding; M19.90 Unspecified osteoarthritis, unspecified site; K21.9 Gastro-esophageal reflux disease without esophagitis; F41.9 Anxiety disorder, unspecified; K76.0 Fatty (change of) liver, not elsewhere classified; Z90.710 Acquired absence of both cervix and uterus; Z90.49 Acquired absence of other specified parts of digestive tract
CPT/HCPCS: 10081

== ENCOUNTER → 2020-05-22 | Outpatient (CLI) | payer OTHER ==
[~2020-05-22] MED LIST changes: +CARAFATE 1 GM TA1 G1 PO; +HYOSCYAMINE0.125 M1 PO; +PANTOPRAZOLE SO40 M1 PO
== END ==
LOC: SJCVCIMAG 10:01
PROVIDERS: ATTEND Internal Medicine
DX: I25.10 Atherosclerotic heart disease of native coronary artery without angina pectoris (principal); I49.3 Ventricular premature depolarization; I47.1 Supraventricular tachycardia; E11.9 Type 2 diabetes mellitus without complications; I10 Essential (primary) hypertension; Z82.49 Family history of ischemic heart disease and other diseases of the circulatory system

== ENCOUNTER → 2020-08-08 | Outpatient (CLI) | payer OTHER | LOC: NUC 09:44 | PROVIDERS: ATTEND Family Medicine | DX: K21.9 Gastro-esophageal reflux disease without esophagitis (principal) ==

== ENCOUNTER → 2020-11-20 | Outpatient (CLI) | payer OTHER | LOC: SJCVC 11:04 | PROVIDERS: ATTEND Internal Medicine | DX: I25.10 Atherosclerotic heart disease of native coronary artery without angina pectoris (principal); I10 Essential (primary) hypertension; E78.5 Hyperlipidemia, unspecified; E11.9 Type 2 diabetes mellitus without complications; Z90.49 Acquired absence of other specified parts of digestive tract; Z98.890 Other specified postprocedural states; Z79.82 Long term (current) use of aspirin; Z79.899 Other long term (current) drug therapy; Z86.711 Personal history of pulmonary embolism; Z82.49 Family history of ischemic heart disease and other diseases of the circulatory system ==

== ENCOUNTER → 2021-05-22 | Outpatient (CLI) | payer OTHER | LOC: SJCVC 10:38 | PROVIDERS: ATTEND Internal Medicine | DX: I25.10 Atherosclerotic heart disease of native coronary artery without angina pectoris (principal); I10 Essential (primary) hypertension; E78.5 Hyperlipidemia, unspecified; I47.1 Supraventricular tachycardia; E13.9 Other specified diabetes mellitus without complications; K21.9 Gastro-esophageal reflux disease without esophagitis; Z86.711 Personal history of pulmonary embolism; Z79.82 Long term (current) use of aspirin; Z79.899 Other long term (current) drug therapy ==